=== PATIENT | female | born 1965 | race Caucasian/White ===

== ENCOUNTER 2017-04-13 05:52 | Emergency (ER) | payer MEDICARE, OTHER ==
[~2017-04-13] VITALS: Ht 152.4 cm; Wt 68.2 kg
[~2017-04-13 05:52] MED LIST: ASPI81TA33 PO
[2017-04-13] MEDS ORDERED: SODIUM CHLORIDE 0.9% 1,000 ML IV ONE (06:15)
[2017-04-13] MEDS ORDERED: ACETAMINOPHEN 500 MG TABLET PO ONE (06:15)
[2017-04-13 06:16] LABS: GLUCOSE,POINT OF CARE 190 MG/DL (70-110)
[2017-04-13 06:59] LABS: BASOPHILS # (AUTO) 0.02 K/uL (0.00-0.20); BASOPHILS % (AUTO) 0.3 % (0.0-2.0); EOSINOPHILS # (AUTO) 0.06 K/uL (0.00-0.70); EOSINOPHILS % (AUTO) 1.21 % (1.0-6.0); HEMATOCRIT 37.2 % (36-46); HEMOGLOBIN 12.3 g/dL (12.0-16.0); LYMPHOCYTES # (AUTO) 0.7 K/uL (1.0-4.8); LYMPHOCYTES % (AUTO) 14.7 % (22.0-44.0); MEAN CORPUSCULAR HEMOGLOBIN 29.5 pg (26.0-34.0); MEAN CORPUSCULAR VOLUME 89 fL (80-100); MONOCYTES # (AUTO) 0.4 K/uL (0.1-1.0); MONOCYTES % (AUTO) 9.4 % (2.0-9.0); NEUTROPHILS # (AUTO) 3.4 K/uL (1.8-7.7); NEUTROPHILS % (AUTO) 74.3 % (40.0-70.0); PLATELET COUNT (AUTO) 155 K/uL (150-450); RED BLOOD CELL COUNT(AUTO) 4.16 MIL/uL (4.00-5.20)
[2017-04-13 07:14] LABS: ANION GAP 9 mmol/L (8-16); CARBON DIOXIDE 29 mmol/L (22-29); CHLORIDE 98 mmol/L (98-107); CREATININE 0.93 mg/dL (0.60-1.30); GLOMERULAR FILTR. RATE CALC > 60 mL/min (>60); GLUCOSE,RANDOM 148 mg/dL (70-110); POTASSIUM 3.9 mmol/L (3.5-5.1); SODIUM SERUM 136 mmol/L (136-145); UREA NITROGEN, BLOOD 8 mg/dL (7-18)
[2017-04-13 07:19] LABS: ALANINE AMINOTRANSFERASE 34 U/L (12-78); ALBUMIN 3.3 g/dL (3.4-5.0); ALKALINE PHOSPHATASE 100 U/L (46-116); ASPARTATE AMINOTRANSFERASE 26 U/L (15-37); BILIRUBIN,TOTAL 0.3 mg/dL (0.1-1.0); TOTAL PROTEIN, SERUM 7.5 g/dL (6.4-8.2)
[2017-04-13 07:20] LABS: INFLUENZA TYPE A NEGATIVE FOR TYPE A (NEGATIVE); INFLUENZA TYPE B NEGATIVE FOR TYPE B (NEGATIVE)
[2017-04-13 07:55] LABS: LACTIC ACID 0.7 mmol/L (0.4-2.0)
[2017-04-13 08:10] VITALS: BP 108/73
[2017-04-13] MEDS ORDERED: ALBUTEROL SULFATE HFA 90 MCG/PUFF 8 GM INHALER IH ONE (08:30)
== END 2017-04-13 08:48 | disposition home or self-care (01) ==
LOC: EMS 05:53
DX: R55 Syncope and collapse (principal); E86.0 Dehydration; R06.02 Shortness of breath; E11.9 Type 2 diabetes mellitus without complications; E78.00 Pure hypercholesterolemia, unspecified; I10 Essential (primary) hypertension; E03.9 Hypothyroidism, unspecified; Z79.82 Long term (current) use of aspirin
CPT/HCPCS: 36415; 71045; 80053; 82962; 83605; 85025; 87804; 93005; 94640; 96360; 99285; J7030; J3535

== ENCOUNTER 2019-03-19 11:03 | Inpatient (IN) | payer MEDICARE, OTHER ==
[~2019-03-19] VITALS: Ht 152.4 cm; Wt 67.8 kg
[~2019-03-19 11:03] MED LIST changes: -ASPI81TA33 PO; +ASPI81TA87 PO
[2019-03-19] MEDS ORDERED: CETI10TA59 PO (11:24)
[2019-03-19] MEDS ORDERED: BECL10.62 IH (11:27)
[2019-03-19] MEDS ORDERED: SIMV-260 PO (11:27)
[2019-03-19] MEDS ORDERED: METF-960 PO (11:27)
[2019-03-19] MEDS ORDERED: MONT10TA21 PO (11:27)
[2019-03-19] MEDS ORDERED: SODIUM CHLORIDE 0.9% 1,000 ML IV ONE ×2 (11:39→13:30)
[2019-03-19] MEDS ORDERED: ACETAMINOPHEN 500 MG TABLET PO ONE (11:45)
[2019-03-19] MEDS ORDERED: ONDANSETRON HCL 4 MG/2 ML VIAL IVP ONE (11:45)
[2019-03-19 11:51] LABS: GLUCOSE,POINT OF CARE 131 MG/DL (70-110)
[2019-03-19 11:58] LABS: BASOPHILS % (AUTO) 0.5 % (0.0-2.0); EOSINOPHILS % (AUTO) 0.2 % (1.0-6.0); HEMATOCRIT 37.5 % (36-46); HEMOGLOBIN 12.5 g/dL (12.0-16.0); MEAN CORPUSCULAR HEMOGLOBIN 30.7 pg (26.0-34.0); MEAN CORPUSCULAR HGB CONC 33.3 G/dL (31.0-37.0); MEAN CORPUSCULAR VOLUME 92 fL (80-100); MONOCYTES # (AUTO) 0.5 K/uL (0.1-1.0); MONOCYTES % (AUTO) 5.8 % (2.0-9.0); NEUTROPHILS # (AUTO) 6.8 K/uL (1.8-7.7); NEUTROPHILS % (AUTO) 81.5 % (40.0-70.0); PLATELET COUNT (AUTO) 215 K/uL (150-450); RED BLOOD CELL COUNT(AUTO) 4.06 MIL/uL (4.00-5.20); RED CELL DISTRIBUTION WIDTH 16.6 % (11.5-14.5)
[2019-03-19 12:08] LABS: ANION GAP 8 mmol/L (8-16); CALCIUM, TOTAL 9.5 mg/dL (8.8-10.5); CARBON DIOXIDE 29 mmol/L (22-29); CHLORIDE 96 mmol/L (98-107); CREATININE 0.92 mg/dL (0.60-1.30); GLOMERULAR FILTR. RATE CALC > 60 mL/min (>60); GLUCOSE,RANDOM 147 mg/dL (70-110); POTASSIUM 3.8 mmol/L (3.5-5.1); SODIUM SERUM 133 mmol/L (136-145); UREA NITROGEN, BLOOD 8 mg/dL (7-18)
[2019-03-19 12:16] LABS: LACTIC ACID 1.3 mmol/L (0.4-2.0)
[2019-03-19 12:23] LABS: ALANINE AMINOTRANSFERASE 38 U/L (12-78); ALBUMIN 3.8 g/dL (3.4-5.0); ALKALINE PHOSPHATASE 71 U/L (46-116); ASPARTATE AMINOTRANSFERASE 37 U/L (15-37); BILIRUBIN,TOTAL 0.8 mg/dL (0.1-1.0); TOTAL PROTEIN, SERUM 7.9 g/dL (6.4-8.2)
[2019-03-19 12:43] LABS: INFLUENZA TYPE A NEGATIVE FOR TYPE A (NEGATIVE); INFLUENZA TYPE B NEGATIVE FOR TYPE B (NEGATIVE)
[2019-03-19 14:33] LABS: APPEARANCE,URINE CLEAR (CLEAR); BILIRUBIN,URINE NEGATIVE (NEGATIVE); GLUCOSE, URINE (UA) NEGATIVE (NEGATIVE); KETONES,URINE NEGATIVE (NEGATIVE); LEUKOCYTE ESTERASE ,URINE NEGATIVE (NEGATIVE); NITRATE,URINE NEGATIVE (NEGATIVE); OCCULT BLOOD,URINE NEGATIVE (NEGATIVE); PH,URINE 5.5 (5.0-8.0); PROTEIN,URINE NEGATIVE (NEGATIVE)
[2019-03-19] MEDS ORDERED: MethylPREDNISolone SOD SUCC 125 MG/2 ML VIAL IVP ONE (15:30)
[2019-03-19] MEDS ORDERED: IPRATROPIUM BROMIDE 0.5 MG/2.5 ML NEB SOLUTION NEB ONE (15:30)
[2019-03-19] MEDS ORDERED: ALBUTEROL SULFATE 5 MG/ML 20 ML NEB SOLN [BULK] NEB ONE (15:30)
[2019-03-19] MEDS ORDERED: ACETAMINOPHEN 325 MG TABLET PO PRN ×2 (17:45→22:00)
[2019-03-19] MEDS ORDERED: ONDANSETRON HCL 4 MG/2 ML VIAL IVP PRN (17:45)
[2019-03-19] MEDS ORDERED: IPRATROPIUM BROMIDE 0.5 MG/2.5 ML NEB SOLUTION NEB SCH (19:00)
[2019-03-19] MEDS ORDERED: ALBUTEROL SULFATE 2.5 MG/0.5 ML NEB SOLUTION NEB SCH (19:00)
[2019-03-19 20:36] VITALS: BP 108/75
[2019-03-19] MEDS ORDERED: MORPHINE SULFATE 2 MG/ML SYRINGE IVP PRN (22:00)
[2019-03-19] MEDS ORDERED: BISACODYL 10 MG RECTAL RECTAL SUPPOSITORY PR PRN (22:00)
[2019-03-19] MEDS ORDERED: HYDROCODONE/ACETAMINOPHEN 5-325 MG TABLET PO PRN (22:00)
[2019-03-19] MEDS ORDERED: ALBUTEROL SULFATE 2.5 MG/0.5 ML NEB SOLUTION NEB PRN ×2 (22:00)
[2019-03-19] MEDS ORDERED: IPRATROPIUM BROMIDE 0.5 MG/2.5 ML NEB SOLUTION NEB PRN ×2 (22:00)
[2019-03-19] MEDS ORDERED: MAGNESIUM HYDROXIDE SUSPENSION 30 ML UDCUP PO PRN (22:00)
[2019-03-19] MEDS ORDERED: CefTRIAXone 1 GM/DEXTROSE 50 ML IV SCH (22:00)
[2019-03-19] MEDS ORDERED: ZOLPIDEM TARTRATE 5 MG TABLET PO PRN (22:00)
[2019-03-19] MEDS ORDERED: AZITHROMYCIN 500 MG/NS 250 ML IV SCH (22:00)
[2019-03-19] MEDS: CefTRIAXone 1 GM/DEXTROSE 50 ML IV SCH (22:56)
[2019-03-19] MEDS ORDERED: SODIUM CHLORIDE 0.9% 250 ML IV ONE (22:57)
[2019-03-19] MEDS: IPRATROPIUM BROMIDE 0.5 MG/2.5 ML NEB SOLUTION NEB SCH (23:47)
[2019-03-19] MEDS: ALBUTEROL SULFATE 2.5 MG/0.5 ML NEB SOLUTION NEB SCH (23:47)
[2019-03-20] MEDS ORDERED: MethylPREDNISolone SOD SUCC 125 MG/2 ML VIAL IVP SCH
[2019-03-20] MEDS: MethylPREDNISolone SOD SUCC 125 MG/2 ML VIAL IVP SCH ×5 (00:02→23:17)
[2019-03-20] MEDS: HEPARIN SODIUM,PORCINE 5,000 UNITS/ML VIAL SQ SCH ×4 (00:03→23:17)
[2019-03-20] MEDS: AZITHROMYCIN 500 MG/NS 250 ML IV SCH ×2 (00:09→23:16)
[2019-03-20 00:11] VITALS: BP 101/72
[2019-03-20] MEDS ORDERED: ALBUTEROL SULFATE 2.5 MG/0.5 ML NEB SOLUTION NEB SCH (02:00)
[2019-03-20] MEDS ORDERED: IPRATROPIUM BROMIDE 0.5 MG/2.5 ML NEB SOLUTION NEB SCH (02:00)
[2019-03-20 05:30] VITALS: BP 100/65
[2019-03-20 06:57] LABS: GLUCOMETER DEV NAME(LOC) 5N.2; GLUCOSE,POINT OF CARE 210 MG/DL (70-110)
[2019-03-20 08:06] VITALS: BP 114/75
[2019-03-20] MEDS: SIMVASTATIN 20 MG TABLET PO SCH (08:41)
[2019-03-20] MEDS: PANTOPRAZOLE SODIUM 40 MG DR TABLET PO SCH (08:41)
[2019-03-20] MEDS: BENZONATATE 100 MG CAPSULE PO SCH ×3 (08:41→21:28)
[2019-03-20] MEDS: MONTELUKAST SODIUM 10 MG TABLET PO SCH (08:41)
[2019-03-20] MEDS: CETIRIZINE HCL 10 MG TABLET PO SCH (08:42)
[2019-03-20] MEDS: MetFORMIN HCL 500 MG TABLET PO SCH ×2 (08:42→17:53)
[2019-03-20] MEDS: ASPIRIN 81 MG EC TABLET PO SCH (08:42)
[2019-03-20] MEDS: GuaiFENesin SR 600 MG ER TABLET PO SCH ×2 (08:42→21:28)
[2019-03-20] MEDS: DOCUSATE SODIUM 100 MG CAPSULE PO SCH ×2 (08:44→21:28)
[2019-03-20] MEDS: ALBUTEROL SULFATE 2.5 MG/0.5 ML NEB SOLUTION NEB SCH ×3 (09:25→20:08)
[2019-03-20] MEDS: IPRATROPIUM BROMIDE 0.5 MG/2.5 ML NEB SOLUTION NEB SCH ×3 (09:26→20:08)
[2019-03-20 12:01] VITALS: BP 104/65
[2019-03-20] MEDS: BECLOMETHASONE DIPR HFA 80 MCG/PUFF 10.6 GM INHALER IH SCH (13:03)
[2019-03-20 16:10] LABS: GLUCOMETER DEV NAME(LOC) 5S.2A; GLUCOSE,POINT OF CARE 193 MG/DL (70-110)
[2019-03-20 19:18] VITALS: BP 110/80
[2019-03-20] MEDS: CefTRIAXone 1 GM/DEXTROSE 50 ML IV SCH (21:52)
[2019-03-20 23:18] VITALS: BP 103/61
[2019-03-21] MEDS: IPRATROPIUM BROMIDE 0.5 MG/2.5 ML NEB SOLUTION NEB SCH ×4 (02:00→19:58)
[2019-03-21] MEDS: ALBUTEROL SULFATE 2.5 MG/0.5 ML NEB SOLUTION NEB SCH ×4 (02:00→19:58)
[2019-03-21 04:23] VITALS: BP 100/63
[2019-03-21] MEDS: MethylPREDNISolone SOD SUCC 125 MG/2 ML VIAL IVP SCH ×4 (06:39→23:57)
[2019-03-21 08:00] VITALS: BP 125/80
[2019-03-21 08:55] LABS: BASOPHILS % (AUTO) 0.1 % (0.0-2.0); EOSINOPHILS % (AUTO) 0 % (1.0-6.0); HEMATOCRIT 36.3 % (36-46); HEMOGLOBIN 11.9 g/dL (12.0-16.0); LYMPHOCYTES # (AUTO) 1.6 K/uL (1.0-4.8); LYMPHOCYTES % (AUTO) 15.3 % (22.0-44.0); MEAN CORPUSCULAR HEMOGLOBIN 30.5 pg (26.0-34.0); MEAN CORPUSCULAR HGB CONC 32.8 G/dL (31.0-37.0); MEAN CORPUSCULAR VOLUME 93 fL (80-100); MONOCYTES # (AUTO) 0.4 K/uL (0.1-1.0); MONOCYTES % (AUTO) 3.9 % (2.0-9.0); NEUTROPHILS # (AUTO) 8.3 K/uL (1.8-7.7); NEUTROPHILS % (AUTO) 80.7 % (40.0-70.0); PLATELET COUNT (AUTO) 250 K/uL (150-450); RED CELL DISTRIBUTION WIDTH 16.6 % (11.5-14.5)
[2019-03-21 09:03] LABS: CALCIUM, TOTAL 9.5 mg/dL (8.8-10.5); POTASSIUM 4.7 mmol/L (3.5-5.1)
[2019-03-21] MEDS: BENZONATATE 100 MG CAPSULE PO SCH ×3 (09:27→20:14)
[2019-03-21] MEDS: ASPIRIN 81 MG EC TABLET PO SCH (09:27)
[2019-03-21] MEDS: MONTELUKAST SODIUM 10 MG TABLET PO SCH (09:27)
[2019-03-21] MEDS: GuaiFENesin SR 600 MG ER TABLET PO SCH ×2 (09:27→20:14)
[2019-03-21] MEDS: SIMVASTATIN 20 MG TABLET PO SCH (09:27)
[2019-03-21] MEDS: BECLOMETHASONE DIPR HFA 80 MCG/PUFF 10.6 GM INHALER IH SCH (09:27)
[2019-03-21] MEDS: DOCUSATE SODIUM 100 MG CAPSULE PO SCH ×2 (09:27→20:14)
[2019-03-21] MEDS: CETIRIZINE HCL 10 MG TABLET PO SCH (09:27)
[2019-03-21] MEDS: MetFORMIN HCL 500 MG TABLET PO SCH ×2 (09:27→18:02)
[2019-03-21] MEDS: PANTOPRAZOLE SODIUM 40 MG DR TABLET PO SCH (09:27)
[2019-03-21] MEDS: HEPARIN SODIUM,PORCINE 5,000 UNITS/ML VIAL SQ SCH ×3 (09:28→23:57)
[2019-03-21 14:39] VITALS: BP 97/68
[2019-03-21 14:47] VITALS: BP 110/71
[2019-03-21 19:42] VITALS: BP 110/72
[2019-03-21] MEDS: CefTRIAXone 1 GM/DEXTROSE 50 ML IV SCH (22:15)
[2019-03-21] MEDS: AZITHROMYCIN 500 MG/NS 250 ML IV SCH (22:59)
[2019-03-21] MEDS: ONDANSETRON HCL 4 MG/2 ML VIAL IVP PRN (23:57)
[2019-03-22] VITALS (7 sets, daily range): BP systolic 96–128; BP diastolic 61–91
[2019-03-22] MEDS: IPRATROPIUM BROMIDE 0.5 MG/2.5 ML NEB SOLUTION NEB SCH ×4 (02:07→20:02)
[2019-03-22] MEDS: ALBUTEROL SULFATE 2.5 MG/0.5 ML NEB SOLUTION NEB SCH ×4 (02:07→20:02)
[2019-03-22] MEDS: MethylPREDNISolone SOD SUCC 125 MG/2 ML VIAL IVP SCH ×4 (05:38→23:18)
[2019-03-22 08:20] LABS: BASOPHILS % (AUTO) 0.1 % (0.0-2.0); EOSINOPHILS % (AUTO) 0 % (1.0-6.0); HEMATOCRIT 33.8 % (36-46); LYMPHOCYTES # (AUTO) 1.4 K/uL (1.0-4.8); LYMPHOCYTES % (AUTO) 14.4 % (22.0-44.0); MEAN CORPUSCULAR HEMOGLOBIN 30.1 pg (26.0-34.0); MEAN CORPUSCULAR HGB CONC 32.6 G/dL (31.0-37.0); MEAN CORPUSCULAR VOLUME 92 fL (80-100); MONOCYTES # (AUTO) 0.4 K/uL (0.1-1.0); NEUTROPHILS # (AUTO) 8.1 K/uL (1.8-7.7); NEUTROPHILS % (AUTO) 81.5 % (40.0-70.0); PLATELET COUNT (AUTO) 234 K/uL (150-450); RED BLOOD CELL COUNT(AUTO) 3.66 MIL/uL (4.00-5.20); RED CELL DISTRIBUTION WIDTH 16.2 % (11.5-14.5)
[2019-03-22] MEDS: DOCUSATE SODIUM 100 MG CAPSULE PO SCH ×2 (08:26→21:01)
[2019-03-22] MEDS: HEPARIN SODIUM,PORCINE 5,000 UNITS/ML VIAL SQ SCH ×3 (08:48→23:17)
[2019-03-22] MEDS: MetFORMIN HCL 500 MG TABLET PO SCH ×2 (08:48→18:16)
[2019-03-22] MEDS: GuaiFENesin SR 600 MG ER TABLET PO SCH ×2 (08:49→21:01)
[2019-03-22] MEDS: MONTELUKAST SODIUM 10 MG TABLET PO SCH (08:49)
[2019-03-22] MEDS: BECLOMETHASONE DIPR HFA 80 MCG/PUFF 10.6 GM INHALER IH SCH (08:49)
[2019-03-22] MEDS: SIMVASTATIN 20 MG TABLET PO SCH (08:49)
[2019-03-22] MEDS: ASPIRIN 81 MG EC TABLET PO SCH (08:49)
[2019-03-22] MEDS: PANTOPRAZOLE SODIUM 40 MG DR TABLET PO SCH (08:49)
[2019-03-22] MEDS: CETIRIZINE HCL 10 MG TABLET PO SCH (08:50)
[2019-03-22] MEDS: BENZONATATE 100 MG CAPSULE PO SCH ×3 (08:50→21:01)
[2019-03-22 09:03] LABS: CALCIUM, TOTAL 8.8 mg/dL (8.8-10.5); CREATININE 1.14 mg/dL (0.60-1.30); POTASSIUM 4.5 mmol/L (3.5-5.1)
[2019-03-22] MEDS: CefTRIAXone 1 GM/DEXTROSE 50 ML IV SCH (21:02)
[2019-03-22] MEDS: ONDANSETRON HCL 4 MG/2 ML VIAL IVP PRN (21:02)
[2019-03-22] MEDS: AZITHROMYCIN 500 MG/NS 250 ML IV SCH (22:00)
[2019-03-23] MEDS: MethylPREDNISolone SOD SUCC 125 MG/2 ML VIAL IVP SCH (05:28)
[2019-03-23 05:31] VITALS: BP 101/62
[2019-03-23 07:22] VITALS: BP 98/58
[2019-03-23 08:33] LABS: BASOPHILS % (AUTO) 0.4 % (0.0-2.0); EOSINOPHILS % (AUTO) 0 % (1.0-6.0); HEMATOCRIT 32.9 % (36-46); LYMPHOCYTES # (AUTO) 1.5 K/uL (1.0-4.8); LYMPHOCYTES % (AUTO) 16.4 % (22.0-44.0); MEAN CORPUSCULAR HEMOGLOBIN 30.7 pg (26.0-34.0); MEAN CORPUSCULAR HGB CONC 33.5 G/dL (31.0-37.0); MEAN CORPUSCULAR VOLUME 92 fL (80-100); MONOCYTES # (AUTO) 0.4 K/uL (0.1-1.0); MONOCYTES % (AUTO) 4.7 % (2.0-9.0); NEUTROPHILS # (AUTO) 7.3 K/uL (1.8-7.7); NEUTROPHILS % (AUTO) 78.5 % (40.0-70.0); PLATELET COUNT (AUTO) 221 K/uL (150-450); RED BLOOD CELL COUNT(AUTO) 3.59 MIL/uL (4.00-5.20); RED CELL DISTRIBUTION WIDTH 16.1 % (11.5-14.5)
[2019-03-23] MEDS: IPRATROPIUM BROMIDE 0.5 MG/2.5 ML NEB SOLUTION NEB SCH ×2 (08:33→14:00)
[2019-03-23] MEDS: ALBUTEROL SULFATE 2.5 MG/0.5 ML NEB SOLUTION NEB SCH ×2 (08:33→14:00)
[2019-03-23 08:43] LABS: CALCIUM, TOTAL 8.8 mg/dL (8.8-10.5); CREATININE 0.99 mg/dL (0.60-1.30); POTASSIUM 4.5 mmol/L (3.5-5.1)
[2019-03-23] MEDS: BECLOMETHASONE DIPR HFA 80 MCG/PUFF 10.6 GM INHALER IH SCH (08:47)
[2019-03-23] MEDS: GuaiFENesin SR 600 MG ER TABLET PO SCH (08:48)
[2019-03-23] MEDS: DOCUSATE SODIUM 100 MG CAPSULE PO SCH (08:48)
[2019-03-23] MEDS: MetFORMIN HCL 500 MG TABLET PO SCH (08:48)
[2019-03-23] MEDS: ASPIRIN 81 MG EC TABLET PO SCH (08:48)
[2019-03-23] MEDS: CETIRIZINE HCL 10 MG TABLET PO SCH (08:48)
[2019-03-23] MEDS: PANTOPRAZOLE SODIUM 40 MG DR TABLET PO SCH (08:48)
[2019-03-23] MEDS: MONTELUKAST SODIUM 10 MG TABLET PO SCH (08:48)
[2019-03-23] MEDS: SIMVASTATIN 20 MG TABLET PO SCH (08:49)
[2019-03-23] MEDS: HEPARIN SODIUM,PORCINE 5,000 UNITS/ML VIAL SQ SCH ×2 (08:49→16:44)
[2019-03-23] MEDS: BENZONATATE 100 MG CAPSULE PO SCH ×2 (08:49→16:44)
[2019-03-23] MEDS ORDERED: PredniSONE 20 MG TABLET PO SCH (09:00)
[2019-03-23 11:13] VITALS: BP 115/85
[2019-03-23 16:06] VITALS: BP 122/78
[2019-03-23] MEDS ORDERED: CEPH500 PO (16:57)
[2019-03-23] MEDS ORDERED: IPRA3AMP24 IH (16:58)
[2019-03-23] MEDS ORDERED: PANT40TA25 PO (17:05)
[2019-03-23] MEDS ORDERED: PRED20 PO (17:08)
[2019-03-23] MEDS ORDERED: PRED10 PO (17:08)
== END 2019-03-23 18:10 | disposition home or self-care (01) | DRG 189 ==
LOC: EMS 11:05 → 5S 18:56
PROVIDERS: ADMIT Internal Medicine; ATTEND Internal Medicine
DX: J96.01 Acute respiratory failure with hypoxia (principal); J44.1 Chronic obstructive pulmonary disease with (acute) exacerbation; R62.50 Unspecified lack of expected normal physiological development in childhood; E03.9 Hypothyroidism, unspecified; E11.9 Type 2 diabetes mellitus without complications; E78.00 Pure hypercholesterolemia, unspecified; E78.5 Hyperlipidemia, unspecified; I10 Essential (primary) hypertension
CPT/HCPCS: 51701; 71250; 83036; 83605; 87804; 93005; 93306; 94640; 94644; 97116; 97162; 97530; 99291; J0456; J0696; J1644; J2405; J2930; J3535; J7030; J7050